=== PATIENT | female | born 1995 | race Caucasian/White ===

== ENCOUNTER 2017-04-04 11:51 | Emergency (ER) | payer BC, MEDICAID ==
[~2017-04-04] VITALS: Ht 152.4 cm; Wt 64.0 kg
[~2017-04-04 11:51] MED LIST: IBUP600 PO; OXYC1SOL5 PO
[2017-04-04 11:55] VITALS: BP 122/83; PULSE 124; RESP 18; TEMP 98.9; O2SAT 97
[2017-04-04 12:13] LABS: BLOOD, URINE NEG (NEG); GLUCOSE,URINE NEG (NEG); KETONE, URINE NEG (NEG); NITRITE,URINE NEG (NEG)
[2017-04-04] MEDS ORDERED: ONDANSETRON ODT 4 MG TAB PO ONE (12:30)
[2017-04-04 12:33] LABS: METHOD OF COLLECTION CLEAN CATCH; URINE COLOR YELLOW (YELLW/STRAW)
[2017-04-04 12:35] LABS: BACTERIA, URINE MANY /hpf; COMMENT (UR) CULTURE INDICATED; COMMENT2 (UR) MUCOUS PRESENT; CULTURE IF INDICATED CULTURE INDICATED; SQUAMOUS EPITHELIAL CELL URINE > 8 /hpf (0-5); WBC, URINE 15-19 /hpf (0-5)
--- NOTE | 2017-04-04 13:02 | PD ---
HPI Chief Complaint: GI Complaint Time Seen by Provider: 12:13 Travel History International Travel<30 days: No Contact w/Intl Traveler<30days: No Traveled to known affect area: No History of Present Illness HPI Patient 21-year-old female presents emergency department for evaluation of nausea and vomiting since yesterday evening. 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 She denies any diarrhea blood in the stool blood in the emesis. She endorses some mild abdominal cramping without true pain. States that she just had her cycle PFSH Past Medical History Asthma: Yes Diminished Hearing: No Respiratory: Yes (ASTHMA) Immunizations Current: Yes Influenza Vaccination: No ?: Not LMP: 03/01/17 Past Surgical History Section: Yes Social History Alcohol Use: No Tobacco Use: No Substance Use: No Allergies-Medications (Allergen,Severity, Reaction): Coded Allergies: No Known Allergies (Verified , 04/04/17) Reported Meds & Prescriptions Reported Meds & Active Scripts Active Keflex (Cephalexin) 500 Mg Cap 500 Mg PO Q6H 7 Days Zofran Odt (Ondansetron Odt) 4 Mg Tab 4 Mg SL Q6HR PRN Review of Systems Except as stated in HPI: all other systems reviewed are Neg Physical Exam Narrative GENERAL: Well-developed well-nourished no apparent distress, talking on her phone. SKIN: Focused skin assessment warm/dry. HEAD: Atraumatic. Normocephalic. EYES: Pupils equal and round. No scleral icterus. No injection or drainage. ENT: No nasal bleeding or discharge. Mucous membranes pink and moist. NECK: Trachea midline. No JVD. CARDIOVASCULAR: Regular rate and rhythm. No murmur appreciated. RESPIRATORY: No accessory muscle use. Clear to auscultation. Breath sounds equal bilaterally. GASTROINTESTINAL: Abdomen soft, non-tender, nondistended. Hepatic and splenic margins not palpable. Abdomen is very benign, no CVA tenderness no psoas sign and obturator sign negative. MUSCULOSKELETAL: No obvious deformities. No clubbing. No cyanosis. No edema. NEUROLOGICAL: Awake and alert. No obvious cranial nerve deficits. Motor grossly within normal limits. Normal speech. PSYCHIATRIC: Appropriate mood and affect; insight and judgment normal. Data Data Last Documented VS Vital Signs Date Time Temp Pulse Resp B/P Pulse Ox O2 Delivery O2 Flow Rate FiO2 04/04/17 13:45 98 16 119/65 99 Room Air 04/04/17 11:55 98.9 Orders Urinalysis - C+S If Indicated (04/04/17 12:00) Ed Urine Pregnancytest Poc (04/04/17 12:00) Ondansetron Odt (Zofran Odt) (04/04/17 12:30) Urine Culture (04/04/17 12:05) Labs Laboratory Tests Test 04/04/17 12:05 Urine Collection Type CLEAN CATCH Urine Color YELLOW Urine Turbidity MOD Urine pH 6.0 Urine Specific [place] 1.033 Urine Protein TRACE mg/dL Urine Glucose (UA) NEG mg/dL Urine Ketones NEG mg/dL Urine Occult Blood NEG Urine Nitrite NEG Urine Bilirubin NEG Urine Leukocyte Esterase NEG Urine RBC 10-14 /hpf Urine WBC 15-19 /hpf Urine WBC Clumps FEW Urine Squamous Epithelial > 8 /hpf Cells Urine Amorphous Sediment MOD Urine Bacteria MANY /hpf Microscopic Urinalysis Comment CULTURE INDICATED Urine Collection Time 1205 MDM Medical Decision Making Medical Screen Exam Complete: Yes Emergency Medical Condition: Yes Differential Diagnosis Urinary tract infection, BV, CV, gastritis, gastroenteritis, acute abdomen is highly unlikely. Narrative Course Patient was roomed emergency department, she appears well and her abdomen is completely benign. She states that she is convinced that her nausea vomiting is from the food she last night. She was given Zofran and is able tolerate by mouth Gatorade. Discussed with the patient be happy to work her up further with basic lab work however I do not think this will be beneficial to her and recommended symptomatic management for now and discussed return to ED criteria. She is agreeable. Urine test was negative, UA shows some evidence for urinary tract infection versus contamination with vaginal specimen. The patient denies any vaginal bleeding or vaginal discharge currently. 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 She stable for discharge at this time. Her Keflex prescription was called into her pharmacy. Diagnosis Primary Impression: Nausea & vomiting Qualified Code: R11.2 - Non-intractable vomiting with nausea, unspecified vomiting type Additional Impression: Gastroenteritis Patient Instructions: Gastroenteritis (DC), General Instructions Departure Forms: Tests/Procedures, Work Release Enter return to work date: Apr 05, 2017 Med/Other Pt SpecificInfo: Prescription(s) given Scripts Cephalexin (Keflex)500 Mg [id number] Mg PO Q6H 7 Days Ref 0 Prov:Peter Villalobos MD 04/04/17 Ondansetron Odt (Zofran Odt)4 Mg Tab4 Mg SL Q6HR PRN (Nausea/Vomiting) #20 TAB Ref 0 Prov:Peter Villalobos MD 04/04/17 Disposition: 01 DISCHARGE HOME Condition: Stable Peter Villalobos MD Apr 04, 2017 13:02
[2017-04-04] MEDS ORDERED: ZOFR4TAB3 SL (13:38)
[2017-04-04 13:45] VITALS: BP 119/65; PULSE 98; RESP 16; O2SAT 99
[2017-04-04] MEDS ORDERED: CEPH-460 PO (14:06)
== END 2017-04-04 13:45 | disposition home or self-care (01) ==
LOC: PHED 11:51
DX: K52.9 Noninfective gastroenteritis and colitis, unspecified (principal); J45.909 Unspecified asthma, uncomplicated
CPT/HCPCS: 81001; 84703; 87086; 99284

== ENCOUNTER 2017-06-16 11:10 | Emergency (ER) | payer BC ==
[~2017-06-16] VITALS: Ht 152.4 cm; Wt 63.0 kg
[~2017-06-16 11:10] MED LIST changes: +CEPH-460 PO; -IBUP600 PO; -OXYC1SOL5 PO; +ZOFR4TAB3 SL
[2017-06-16 11:11] VITALS: BP 115/55; PULSE 55; RESP 16; TEMP 97.7
[2017-06-16] MEDS ORDERED: ESCI10TA PO (11:27)
--- NOTE | 2017-06-16 11:44 | PD ---
HPI Chief Complaint: Syncope/Near-Syncope Time Seen by Provider: 11:28 Travel History International Travel<30 days: No Contact w/Intl Traveler<30days: No Traveled to known affect area: No History of Present Illness HPI 21yo F with PMH of depression presents to the ED with c/o nausea today. She said she felt nauseous, then her eyes became blurry and her friends sat her down in a chair and as per her friend, she was out for a few minutes. Did not fall or hit her head. Pt states she did not eat anything all day. Denies any seizure like activities. Denies any fever, chest pain, sob, vomiting, abdominal pain, focal weakness or numbness. LMP 2 days ago. Denies family history of sudden cardiac . Pt feels better now but still has a little nausea. Vision is normal. She said her psychiatrist started a new medication for her depression 3 weeks ago but does not remember name and does not know if that has anything to do with it. PFSH Past Medical History Asthma: Yes Depression: Yes Diminished Hearing: No Respiratory: Yes (ASTHMA) Immunizations Current: Yes Tetanus Vaccination: < 5 Years Influenza Vaccination: No ?: Not LMP: 2 days ago Past Surgical History Section: Yes Social History Alcohol Use: No Tobacco Use: No Substance Use: No Allergies-Medications (Allergen,Severity, Reaction): Coded Allergies: No Known Allergies (Verified , 06/16/17) Reported Meds & Prescriptions Reported Meds & Active Scripts Active Reported Escitalopram (Escitalopram Oxalate) 10 Mg Tab 10 Mg PO DAILY Review of Systems Except as stated in HPI: all other systems reviewed are Neg Physical Exam Narrative GENERAL: 21yo F not in distress. SKIN: Focused skin assessment warm/dry. HEAD: Atraumatic. Normocephalic. EYES: Pupils equal and round at 4mm bilaterally. EOMI. No scleral icterus. No injection or drainage. ENT: No nasal bleeding or discharge. Mucous membranes pink and moist. NECK: Trachea midline. No JVD. CARDIOVASCULAR: Regular rate and rhythm. No murmur appreciated. RESPIRATORY: No accessory muscle use. Clear to auscultation. Breath sounds equal bilaterally. GASTROINTESTINAL: Abdomen soft, non-tender, nondistended. MUSCULOSKELETAL: No obvious deformities. No clubbing. No cyanosis. No edema. NEUROLOGICAL: Awake and alert. No obvious cranial nerve deficits. Motor grossly within normal limits. Normal speech. PSYCHIATRIC: Appropriate mood and affect; insight and judgment normal. Data Data Last Documented VS Vital Signs Date Time Temp Pulse Resp B/P (MAP) Pulse Ox O2 Delivery O2 Flow Rate FiO2 06/16/17 12:05 99 Room Air 06/16/17 12:05 56 14 56 16 58 16 06/16/17 11:11 97.7 Orders Orders Electrocardiogram (06/16/17 ) Ed Urine Pregnancytest Poc (06/16/17 11:35) Urinalysis - C+S If Indicated (06/16/17 11:35) Blood Glucose (06/16/17 11:35) Orthostatic Blood Pressure (06/16/17 11:35) Ondansetron Odt (Zofran Odt) (06/16/17 11:45) Labs Laboratory Tests Test 06/16/17 12:00 Urine Color STRAW Urine Turbidity CLEAR Urine pH 7.5 Urine Specific [place] 1.024 Urine Protein TRACE mg/dL Urine Glucose (UA) NEG mg/dL Urine Ketones NEG mg/dL Urine Occult Blood NEG Urine Nitrite NEG Urine Bilirubin NEG Urine Leukocyte Esterase NEG Urine WBC 3-5 /hpf Urine Squamous Epithelial Cells >8 /hpf Urine Bacteria FEW /hpf Urine Mucus MOD /lpf Microscopic Urinalysis Comment CULT NOT INDICATED MDM Medical Decision Making Medical Screen Exam Complete: Yes Emergency Medical Condition: Yes Interpretation(s) EKG: NSR 63bpm. Normal axis. QTc normal at 420ms. No ST segment elevation or depression. No brugada pattern. No LVH. Differential Diagnosis Vasovagal syncope vs. QT prolongation vs. hypoglycemia vs. dehydration vs. vs. medication side effect Narrative Course 21yo F with what sounds like vasovagal syncope. Pt is very well appearing and just has a little bit of nausea now. No other complaints. No seizure activity. EKG showed no prolong QT or other concerning rhythms. Blood glucose normal at 120. Orthostatic negative. UA negative. Pt observed in the ED and reevaluated after zofran. No longer nauseous. Feels completely normal. No chest pain, sob, focal weakness or numbness. Return precautions given. Diagnosis Primary Impression: Vasovagal syncope Patient Instructions: General Instructions Departure Forms: Tests/Procedures Additional Instructions: Please follow up with your primary care physician for further evaluation. Return to the ED if symptoms worsen. Med/Other Pt SpecificInfo: No Change to Meds Disposition: 01 DISCHARGE HOME Condition: Stable Sol Lin DO Jun 16, 2017 11:44
[2017-06-16] MEDS ORDERED: ONDANSETRON ODT 4 MG TAB PO ONE (11:45)
[2017-06-16 12:05] VITALS: BP_SYST 113; BP_SYST 114; BP_SYST 118; BP_DIAS 57; BP_DIAS 59; BP_DIAS 61; RESP 14; RESP 16; O2SAT 99
[2017-06-16 12:13] LABS: BLOOD, URINE NEG (NEG); GLUCOSE,URINE NEG (NEG); KETONE, URINE NEG (NEG); NITRITE,URINE NEG (NEG); PH, URINE 7.5 (5.0-8.5)
[2017-06-16 12:19] LABS: URINE COLOR STRAW (YELLW/STRAW)
[2017-06-16 12:23] LABS: MUCUS URINE MOD /lpf (OCC)
[2017-06-16 12:25] LABS: BACTERIA, URINE FEW /hpf; COMMENT (UR) CULT NOT INDICATED; CULTURE IF INDICATED CULT NOT INDICATED; SQUAMOUS EPITHELIAL CELL URINE >8 /hpf (0-5)
--- NOTE | 2017-06-17 11:56 | EKG ---
Date Performed: 06/16/2017 Time Performed: 11:45:48 PTAGE: 21 years EKG: Sinus rhythm NORMAL ECG PREVIOUS TRACING : 04/21/1999 16.59 Compared to previous tracing, nonspecific septal T wave abn ormality has resolved. DOCTOR: Rojelio Rocha Interpretating Date/Time 06/17/2017 11:54:56
== END 2017-06-16 12:50 | disposition home or self-care (01) ==
LOC: PHED 11:10
DX: R55 Syncope and collapse (principal); R11.10 Vomiting, unspecified; J45.909 Unspecified asthma, uncomplicated
CPT/HCPCS: 81001; 84703; 93005; 99284

== ENCOUNTER 2017-10-23 18:10 | Emergency (ER) | payer BC, OTHER ==
[~2017-10-23] VITALS: Ht 152.4 cm; Wt 65.0 kg
[~2017-10-23 18:10] MED LIST changes: +BACT800T5 PO; +ESCI10TA PO; +IBUP-232 PO; -ZOFR4TAB3 SL
[2017-10-23 18:21] VITALS: BP 134/67; PULSE 98; RESP 16; TEMP 98.3; O2SAT 98
[2017-10-23] MEDS ORDERED: PREN1PAK9 (19:07)
[2017-10-23] MEDS ORDERED: SODIUM CHLOR 0.9% 1000 ML INJ 1,000 ML IV SCH ×2 (19:08→20:15)
[2017-10-23] MEDS ORDERED: DOXY10TA PO (19:12)
[2017-10-23] MEDS ORDERED: ONDANSETRON HCL 4 MG/2 ML VIAL IV PUSH ONE (19:15)
[2017-10-23] MEDS ORDERED: SODIUM CHLORIDE 0.9% FLUSH 10 ML FLUSH IV FLUSH PRN (19:15)
--- NOTE | 2017-10-23 19:19 | PD ---
HPI Chief Complaint: Related Problem Time Seen by Provider: 19:08 Travel History International Travel<30 days: No Contact w/Intl Traveler<30days: No Traveled to known affect area: No History of Present Illness HPI The patient is a 22-year-old female that is 12 weeks and ran out of her diclegis on . She has been vomiting since Tuesday. She is G1 2, P1 , A0. [facility] Past Medical History Asthma: Yes Depression: Yes Diminished Hearing: No Respiratory: Yes (ASTHMA) Immunizations Current: Yes Tetanus Vaccination: < 5 Years Influenza Vaccination: Yes ?: : 2 Para: 1 Past Surgical History Section: Yes Gynecologic Surgery: Yes ( 05/26) Social History Alcohol Use: No Tobacco Use: No Substance Use: No Allergies-Medications (Allergen,Severity, Reaction): Coded Allergies: No Known Allergies (Verified Adverse Reaction, Unknown, 10/23/17) Reported Meds & Prescriptions Reported Meds & Active Scripts Active Diclegis (Doxylamine-Pyridoxine) 10-10 Mg Tab 2 Tab PO HS Reported + Complete Multi 18-0.8 & 290 mg ( Mv & Min W/Fe Prot Taylor) 18 Mg Iron-800 Mcg-290 Mg-225 Mg Ke Review of Systems Except as stated in HPI: all other systems reviewed are Neg Physical Exam Narrative GENERAL: The patient is alert, oriented 3 in slight apparent distress with her nausea. Her vital signs are normal. SKIN: Focused skin assessment warm/dry. HEAD: Atraumatic. Normocephalic. EYES: Pupils equal and round. No scleral icterus. No injection or drainage. ENT: No nasal bleeding or discharge. Mucous membranes pink and moist. NECK: Trachea midline. No JVD. CARDIOVASCULAR: Regular rate and rhythm. No murmur appreciated. RESPIRATORY: No accessory muscle use. Clear to auscultation. Breath sounds equal bilaterally. GASTROINTESTINAL: Abdomen soft, non-tender, nondistended. Hepatic and splenic margins not palpable. MUSCULOSKELETAL: No obvious deformities. No clubbing. No cyanosis. No edema. NEUROLOGICAL: Awake and alert. No obvious cranial nerve deficits. Motor grossly within normal limits. Normal speech. PSYCHIATRIC: Appropriate mood and affect; insight and judgment normal. Data Data Last Documented VS Vital Signs Date Time Temp Pulse Resp B/P (MAP) Pulse Ox O2 Delivery O2 Flow Rate FiO2 10/23/17 19:27 86 16 112/72 (85) 86 Room Air 10/23/17 18:21 98.3 Orders Orders Complete Blood Count With Diff (10/23/17 19:08) Comprehensive Metabolic Panel (10/23/17 19:08) Lipase (10/23/17 19:08) Iv Access Insert/Monitor (10/23/17 19:08) Ecg Monitoring (10/23/17 19:08) Oximetry (10/23/17 19:08) Sodium Chlor 0.9% 1000 Ml Inj (Ns 1000 M (10/23/17 19:08) Sodium Chloride 0.9% Flush (Ns Flush) (10/23/17 19:15) Ondansetron Inj (Zofran Inj) (10/23/17 19:15) Prochlorperazine Inj (Compazine Inj) (10/23/17 20:15) Sodium Chlor 0.9% 1000 Ml Inj (Ns 1000 M (10/23/17 20:15) Labs Laboratory Tests Test 10/23/17 19:25 White Blood Count 7.0 TH/MM3 Red Blood Count 5.05 MIL/MM3 Hemoglobin 12.1 GM/DL Hematocrit 39.3 % Mean Corpuscular Volume 77.9 FL Mean Corpuscular Hemoglobin 23.9 PG Mean Corpuscular Hemoglobin Concent 30.7 % Red Cell Distribution Width 14.8 % Platelet Count 306 TH/MM3 Mean Platelet Volume 8.2 FL Neutrophils (%) (Auto) 73.9 % Lymphocytes (%) (Auto) 18.2 % Monocytes (%) (Auto) 6.5 % Eosinophils (%) (Auto) 0.6 % Basophils (%) (Auto) 0.8 % Neutrophils # (Auto) 5.1 TH/MM3 Lymphocytes # (Auto) 1.3 TH/MM3 Monocytes # (Auto) 0.5 TH/MM3 Eosinophils # (Auto) 0.0 TH/MM3 Basophils # (Auto) 0.1 TH/MM3 CBC Comment AUTO DIFF Differential Comment AUTO DIFF CONFIRMED Platelet Estimate NORMAL Platelet Morphology Comment NORMAL Red Cell Morphology Comment Blood Urea Nitrogen 5 MG/DL Creatinine 0.46 MG/DL Random Glucose 74 MG/DL Total Protein 7.6 GM/DL Albumin 3.2 GM/DL Calcium Level 8.6 MG/DL Alkaline Phosphatase 67 U/L Aspartate Amino Transf (AST/SGOT) 18 U/L Alanine Aminotransferase (ALT/SGPT) 20 U/L Total Bilirubin 0.3 MG/DL Sodium Level 138 MEQ/L Potassium Level 3.3 MEQ/L Chloride Level 103 MEQ/L Carbon Dioxide Level 24.1 MEQ/L Anion Gap 11 MEQ/L Estimat Glomerular Filtration Rate 171 ML/MIN Lipase 114 U/L MDM Medical Decision Making Medical Screen Exam Complete: Yes Emergency Medical Condition: Yes Medical Record Reviewed: Yes Interpretation(s) The CBC is normal and the white count is only 7000. The complete metabolic profile shows potassium of 3.3 and albumen 3.2 but is otherwise normal. The lipase is normal. Differential Diagnosis Hyperemesis gravidarum, sbo, unlikely, gastritis, viral gastroenteritis, dehydration Narrative Course The patient will have her Diclegis refilled. She was increase clear liquid intake in the next 48 hours and follow up with her extractor operator this week. Impression: Hyperemesis gravidarum, mild dehydration Diagnosis Primary Impression: Hyperemesis gravidarum Additional Impression: Mild dehydration Additional Instructions: Stick with clear liquids in the next 48 hours like Gatorade. Make sure you're well-hydrated. Follow-up this week with your extractor operator. Scripts Doxylamine-Pyridoxine (Diclegis) 10-10 Mg Tab 2 TAB PO HS, #30 Prov: Rick Rosario MD 10/23/17 Disposition: 01 DISCHARGE HOME Condition: Stable Rick Rosario MD Oct 23, 2017 19:19
[2017-10-23 19:27] VITALS: BP 112/72; PULSE 86; RESP 16; O2SAT 86
[2017-10-23 19:33] LABS: AUTOMATED NEUTROPHIL # 5.1 TH/MM3 (1.8-7.7); BASOPHIL # 0.1 TH/MM3 (0-0.2); BASOPHIL % 0.8 % (0.0-2.0); EOSINOPHIL % 0.6 % (0.0-4.0); HEMATOCRIT 39.3 % (35.0-46.0); HEMOGLOBIN 12.1 GM/DL (11.6-15.3); LYMPH % 18.2 % (9.0-44.0); LYMPHOCYTE # 1.3 TH/MM3 (1.0-4.8); MEAN CELL VOLUME 77.9 FL (80.0-100.0); MEAN CORPUSCULAR HEMOGLOBIN 23.9 PG (27.0-34.0); MEAN CORPUSCULAR HGB CONC 30.7 % (32.0-36.0); MEAN PLATELET VOLUME 8.2 FL (7.0-11.0); MONO % 6.5 % (0.0-8.0); MONOCYTE # 0.5 TH/MM3 (0-0.9); NEUT % 73.9 % (16.0-70.0); PLATELET COUNT 306 TH/MM3 (150-450); RED BLOOD COUNT 5.05 MIL/MM3 (4.00-5.30); RED CELL DISTRIBUTION WIDTH 14.8 % (11.6-17.2)
[2017-10-23 19:50] LABS: CHLORIDE 103 MEQ/L (98-107); SODIUM (NA) 138 MEQ/L (136-145)
[2017-10-23 19:53] LABS: CALCIUM 8.6 MG/DL (8.5-10.1)
[2017-10-23 19:54] LABS: ALBUMIN 3.2 GM/DL (3.4-5.0); BICARBONATE 24.1 MEQ/L (21.0-32.0); BLOOD UREA NITROGEN 5 MG/DL (7-18); GLUCOSE,RANDOM 74 MG/DL (74-106); LIPASE 114 U/L (73-393)
[2017-10-23 19:57] LABS: ALT (GPT) 20 U/L (10-53); AST (GOT) 18 U/L (15-37); CREATININE 0.46 MG/DL (0.50-1.00); GLOMERULAR FILTRATION RATE 171 ML/MIN (>89)
[2017-10-23 19:58] LABS: TOTAL BILIRUBIN ADULT 0.3 MG/DL (0.2-1.0); TOTAL PROTEIN 7.6 GM/DL (6.4-8.2)
[2017-10-23 20:00] LABS: ALKALINE PHOSPHATASE 67 U/L (45-117)
[2017-10-23] MEDS ORDERED: PROCHLORPERAZINE INJ 10 MG/2 ML VIAL IV PUSH ONE (20:15)
[2017-10-23 21:09] VITALS: BP 110/62
== END 2017-10-23 21:20 | disposition home or self-care (01) ==
LOC: PHED 18:10
DX: O21.0 Mild hyperemesis gravidarum (principal); E86.0 Dehydration; O99.281 Endocrine, nutritional and metabolic diseases complicating pregnancy, first trimester; J45.909 Unspecified asthma, uncomplicated; O99.511 Diseases of the respiratory system complicating pregnancy, first trimester; O99.341 Other mental disorders complicating pregnancy, first trimester; F41.8 Other specified anxiety disorders; Z3A.12 12 weeks gestation of pregnancy
CPT/HCPCS: 80053; 83690; 85025; 96361; 96374; 96375; 99284; J0780; J2405; J7030

== ENCOUNTER 2017-12-12 18:56 | Emergency (ER) | payer BC, OTHER ==
[~2017-12-12 18:56] MED LIST changes: -BACT800T5 PO; -CEPH-460 PO; +DOXY10TA PO; -ESCI10TA PO; -IBUP-232 PO; +PREN1PAK9
--- NOTE | 2017-12-12 19:51 | PD ---
HPI Chief Complaint Epigastric pain Date Seen: Dec 12, 2017 Time Seen: 19:48 Travel History International Travel<30 Days: No Contact w/Intl Traveler<30Days: No Known Affected Area: No History of Present Illness HPI 22-year-old at 18 weeks gestation comes in complaining of epigastric pain that began approximately an hour and a half ago when she was at work. Patient denies any heavy lifting at exercise or trauma. Patient denies nausea vomiting , fever, vaginal bleeding, or diarrhea. Patient has a history of a section in the past and otherwise her antepartum course has been normal Weeks Gestation: 18 Para: 1 : 2 History Past Medical History Medical History: Denies Significant Hx Family History Family History: Negative Social History Alcohol Use: No Tobacco Use: No Substance Abuse: No Allergies-Medications (Allergen,Severity, Reaction): Coded Allergies: No Known Allergies (Verified Adverse Reaction, Unknown, 10/23/17) Home Meds Active Scripts Doxylamine-Pyridoxine (Diclegis) 10-10 Mg Tab, 2 TAB PO HS, #30 Prov:Rick Rosario MD 10/23/17 Reported Medications Mv & Min W/Fe Prot Taylor ( + Complete Multi 18-0.8 & 290 mg) 18 Mg Iron-800 Mcg-290 Mg-225 Mg Ke 10/23/17 Review of Systems Except as stated in HPI: all other systems reviewed are Neg Physical Exam Narrative GENERAL: Well-nourished, well-developed patient. SKIN: Warm and dry. HEAD: Normocephalic and atraumatic. EYES: No scleral icterus. No injection or drainage. NECK: Supple, trachea midline. No JVD. CARDIOVASCULAR: Regular rate and rhythm without murmurs, gallops, or rubs. RESPIRATORY: Breath sounds equal bilaterally. No accessory muscle use. ABDOMEN/GI: Abdomen soft, non-tender, bowel sounds present, no rebound, no guarding Gravid to [-] weeks size 18 Fundal Height: [-] GENITOURINARY: Deferred External Genitalia: intact and normal in appearance BUS glands: [-] Cervix: [-] Dilatation: [-] Effacement: [-] Station: [-] Presentation: [-] Membranes: [intact or ruptured] Uterine Contractions: [-] FHT's: 142 by Doppler Category: [-] Baseline: [-] Reactive: [-] Variability: [-] Decels: [-] EXTREMITIES: No cyanosis or edema. BACK: Nontender without obvious deformity. No CVA tenderness. NEUROLOGICAL: Awake and alert. Motor and sensory grossly within normal limits. Five out of 5 muscle strength in all muscle groups. Normal speech. MDM Medical Record Reviewed: Yes Plan 22-year-old at 18 weeks gestation with epigastric pain, exam is benign Patient is afebrile with a benign exam so I am not concerned about cholecystitis Recommend the use of Tums or [id number] Pepcid or Prilosec as necessary Follow up with OB provider tomorrow Diagnosis Diagnosis: Primary Impression: 18 weeks gestation of Additional Impression: with epigastric pain, antepartum Disposition: 01 DISCHARGE HOME Condition: Stable Patient Instructions: General Instructions, Labor (ED), Abdominal Pain in (ED) Additional Instructions: DRINK PLENTY OF WATER DURING THE DAY, RETURN IF LEAKING FLUID, VAGINAL BLEEDING , STRONG CONTRACTIONS, DECREASE IN MOVEMENT OR IF SYMPTOMS WORSEN OR PERSIST.FOLLOW UP WITH OB DR IN AM AND KEEP ALL UPCOMING OB APPTS. Departure Forms: Tests/Procedures Re Bolton MD Dec 12, 2017 19:51
== END 2017-12-12 19:40 | disposition home or self-care (01) ==
LOC: HOBED 18:56
DX: O26.891 Other specified pregnancy related conditions, first trimester (principal); R10.13 Epigastric pain; Z3A.18 18 weeks gestation of pregnancy
CPT/HCPCS: 99283

== ENCOUNTER 2018-04-14 11:35 | Inpatient (IN) ==
--- NOTE | 2018-04-14 12:31 | ED ---
History of Present Illness Primary Care Physician: Ivy Reece MD History of Present Illness: 31-year-old 3 para 2 at 18 weeks gestation who comes today with a complaint of intermittent lower abdominal pain. She noticed this at about 4 this morning. It has occurred several times throughout the day. Last for a few seconds. She denies any bleeding discharge or leakage of fluid. No dysuria hematuria or frequency. No severe constipation. She has occasional diarrhea. - Inpatient Certification If this patient has been admitted as an Inpatient: I certify that the inpatient services were ordered in accordance with Medicare regulations governing the order. This includes certification that hospital inpatient services are reasonable and necessary and in the case of services not specified as inpatient-only under 42 CFR 419.22(n), that they are appropriately provided as inpatient services in accordance to with the 2-midnight benchmark under 43 CFR 412.3(e) Review of Systems All other systems reviewed negative except as stated in HPI PMFSH - History History Provided By: Patient - Medical / Surgical Hx Neg / Unobtainable Medical Problems Denied: Yes - Medical History Medical History: Medical History (Last Updated 04/14/18 @ 12:18 by Rahul Mancini MD) History of frequent urinary tract infections - Surgical History Surgical History: Surgical History (Last Updated 04/14/18 @ 12:24 by Rahul Mancini MD) Hx of appendectomy Hx of section - Tobacco History Tobacco Use In Past 30 Days: No - Travel History History of Recent Travel: No Recent Travel in the [place] Within the Last 8 Weeks: No Recent Travel Out of the Country Within the Last 8 Weeks: No Medications and Allergies Allergies Allergy/AdvReac Type Severity Reaction Status Date / Time No Known Allergies AdvReac Unknown Uncoded 10/23/17 19:02 Exam Vital signs: Vital Signs 04/14/18 12:06 Temperature 98.4 F Pulse Rate 111 H Respiratory Rate 20 Blood Pressure 131/80 Intake & Output 04/13/18 04/14/18 04/14/18 18:59 06:59 18:59 Weight 76.657 kg - Constitutional no acute distress - Routine Neck Exam Absent: lymphadenopathy, thyromegaly - Routine Respiratory Exam Absent: decreased breath sounds, wheezes - Routine Cardiovascular Exam Present: RRR. Absent: murmur - Routine Abdominal Exam Present: soft, normoactive bowel sounds. Absent: tenderness, distended, guarding, mass - Routine Extremities Exam Absent: edema - Routine Skin Exam Present: intact - Routine Neurological Exam Present: alert, oriented X3 Triage/Final Diagnosis - Evaluation Baseline heart rate: 140 Cervical dilation (cm): 0 Cervical effacement (%): 0 station: -3 Laboratory results: Urinalysis was negative Vital signs: Vital Signs - 24 hr 04/14/18 12:06 Temperature 98.4 F Pulse Rate 111 H Respiratory Rate 20 Blood Pressure 131/80 Comments: The uterus including the lower uterine segment is nontender. There is no cervical motion tenderness. No unusual vaginal discharge. Assessment: Lower abdominal pain at 18 weeks gestation with no acute abnormalities noted Plan: Discharged home. Precautions reviewed. Follow-up as needed for routine care. - Final Diagnosis (1) 18 weeks gestation of Current Visit: Yes Status: Acute (2) Abdominal pain affecting Current Visit: Yes Status: Acute Physical Exam Vital signs: Temp Pulse Resp BP 98.4 F 111 H 20 131/80 04/14/18 12:06 04/14/18 12:06 04/14/18 12:06 04/14/18 12:06
[2018-04-14] MEDS ORDERED: NIFEdipine 10 MG Capsule ONE (14:01)
[2018-04-14] MEDS ORDERED: Citric Acid/Sodium Citrate Liq 30 ML UDC ONE (14:20)
[2018-04-14] MEDS ORDERED: Citric Acid/Sodium Citrate Liq 30 ML UDC PO SCH (14:30)
--- NOTE | 2018-04-14 14:38 | P.HPOB ---
History of Present Illness Primary Care Physician: Ivy Reece MD History of Present Illness: 22-year-old 2 para 1 at 36+ weeks gestation who reports increasing contraction activity throughout the afternoon. She is a prior anticipating a scheduled repeat later this month. She is a patient of Dr. Clement. The patient has regular uterine contractions and progressive cervical change since arrival and will be admitted for repeat . - Inpatient Certification If this patient has been admitted as an Inpatient: I certify that the inpatient services were ordered in accordance with Medicare regulations governing the order. This includes certification that hospital inpatient services are reasonable and necessary and in the case of services not specified as inpatient-only under 42 CFR 419.22(n), that they are appropriately provided as inpatient services in accordance to with the 2-midnight benchmark under 43 CFR 412.3(e) Estimated Total Length of Stay (Days): 3 Plans for Post Hospital Care: Home Review of Systems All other systems reviewed negative except as stated in HPI PMFSH - History History Provided By: Patient - Medical / Surgical Hx Neg / Unobtainable Medical Problems Denied: Yes - Surgical History Surgical History: Surgical History (Last Updated 04/14/18 @ 14:32 by Rahul Mancini MD) History of delivery - Tobacco History Tobacco Use In Past 30 Days: No Smoking Status: Never smoker - Substance Use History Substance History: No History of Abuse - Travel History History of Recent Travel: No Recent Travel in the [place] Within the Last 8 Weeks: No Recent Travel Out of the Country Within the Last 8 Weeks: No Medications and Allergies Active Medications: Active Medications Citric Acid/Sodium Citrate (Sodium Citrate/Citric Acid Liq) 30 ml PO BOOT 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 Stop: 04/18/18 14:29 Cefazolin Sodium 2,000 mg/ (Sodium Chloride) 100 mls @ 200 mls/hr IV.SIG BOOT LACE C[employer] MACHINE PREET Stop: 04/18/18 14:59 Lactated Ringer's (Lr 1000 Ml Inj) 1,000 mls @ 2,000 mls/hr IV.SIG .Q30M ONE Stop: 04/14/18 14:47 Lactated Ringer's (Lr 1000 Ml Inj) 1,000 mls @ 150 mls/hr IV.CONT .Q6H40M [facility] Allergies Allergy/AdvReac Type Severity Reaction Status Date / Time No Known Allergies Allergy Verified 04/14/18 12:31 Home Medications Medication Instructions Recorded Confirmed Type PNV #[id number] 1 tab PO DAILY 04/14/18 04/14/18 History Exam Vital signs: Vital Signs 04/14/18 12:06 04/14/18 12:18 Temperature 98.4 F Pulse Rate 111 H 103 H Respiratory Rate 20 Blood Pressure 131/80 134/78 Intake & Output 04/13/18 04/14/18 04/14/18 18:59 06:59 18:59 Weight 76.657 kg Narrative: GENERAL: Well-nourished, well-developed patient. SKIN: Warm and dry. HEAD: Normocephalic and atraumatic. EYES: No scleral icterus. No injection or drainage. ENT: No nasal drainage noted. Mucous membranes pink. Airway patent. NECK: Supple, trachea midline. No JVD. CARDIOVASCULAR: Regular rate and rhythm without murmurs, gallops, or rubs. RESPIRATORY: Breath sounds equal bilaterally. No accessory muscle use. ABDOMEN/GI: Abdomen soft, non-tender, bowel sounds present, no rebound, no guarding Gravid to [-] weeks size Fundal Height: [-] GENITOURINARY: External Genitalia: intact and normal in appearance BUS glands: [-] Cervix: [-] Dilatation: [-4] Effacement: [-80] Station: [-2-] Presentation: [-v] Membranes: [intact ] Uterine Contractions: [-] FHT's: Category: [1-] Baseline: [-] Reactive: [-] Variability: [-] Decels: [-] EXTREMITIES: No cyanosis or edema. BACK: Nontender without obvious deformity. No CVA tenderness. NEUROLOGICAL: Awake and alert. Motor and sensory grossly within normal limits. Five out of 5 muscle strength in all muscle groups. Normal speech. Caprini VTE Risk Assessment Caprini VTE Risk Assessment: No/Low Risk (score <= 1) Caprini Risk Assessment Model: Point Value = 1 Point Value = 2 Point Value = 3 Point Value = 5 Age 41-60 Minor surgery BMI > 25 kg/m2 Swollen legs Varicose veins or History of unexplained or recurrent spontaneous Oral contraceptives or hormone replacement Sepsis (< 1 month) Serious lung disease, including pneumonia (< 1 month) Abnormal pulmonary function Acute myocardial infarction Congestive heart failure (< 1 month) History of inflammatory bowel disease Medical patient at bed rest Age 61-74 Arthroscopic surgery Major open surgery (> 45 min) Laparoscopic surgery (> 45 min) Malignancy Confined to bed (> 72 hours) Immobilizing plaster cast Central venous access Age >= 75 History of VTE Family history of VTE Factor V Leiden Prothrombin [id number] Lupus anticoagulant Anticardiolipin antibodies Elevated serum homocysteine Heparin-induced thrombocytopenia Other congenital or acquired thrombophilia Stroke (< 1 month) Elective arthroplasty Hip, pelvis, or leg fracture Acute spinal cord injury (< 1 month) Prophylaxis Regimen: Total Risk Factor Score Risk Level Prophylaxis Regimen 0-1 Low Early ambulation 2 Moderate Order ONE of the following: *Sequential Compression Device (SCD) *Heparin 5000 units SQ BID 3-4 Higher Order ONE of the following medications: *Heparin 5000 units SQ TID *Enoxaparin/Lovenox 40 mg SQ daily (WT < 150 kg, CrCl > 30 mL/min) *Enoxaparin/Lovenox 30 mg SQ daily (WT < 150 kg, CrCl > 10-29 mL/min) *Enoxaparin/Lovenox 30 mg SQ BID (WT < 150 kg, CrCl > 30 mL/min) AND/OR *Sequential Compression Device (SCD) 5 or more Highest Order ONE of the following medications: *Heparin 5000 units SQ TID (Preferred with Epidurals) *Enoxaparin/Lovenox 40 mg SQ daily (WT < 150 kg, CrCl > 30 mL/min) *Enoxaparin/Lovenox 30 mg SQ daily (WT < 150 kg, CrCl > 10-29 mL/min) *Enoxaparin/Lovenox 30 mg SQ BID (WT < 150 kg, CrCl > 30 mL/min) AND *Sequential Compression Device (SCD) Assessment and Plan - Diagnosis (1) 36 weeks gestation of Code(s): Z3A.36 - 36 weeks gestation of Status: Acute Plan: Admit for repeat section
[2018-04-14] MEDS ORDERED: Morphine Sulfate PF Inj 5 MG/10 ML Ampul ONE (14:42)
[2018-04-14 14:48] LABS: Baso % (Auto) 0.2 % (0.0-2.0); Eos # (Auto) 0.1 th/mm3 (0.0-0.4); Eos % (Auto) 0.5 % (0.0-4.0); Hematocrit 30.2 % (35.0-46.0); Hemoglobin 9.8 gm/dL (11.6-15.3); Lymph # (Auto) 2.1 th/mm3 (1.0-4.8); Lymph % (Auto) 17.9 % (9.0-44.0); Mean Corpuscular HGB Conc 32.6 % (32.0-36.0); Mean Corpuscular Hemoglobin 22.2 pg (27.0-34.0); Mean Platelet Volume 8.8 fL (7.0-11.0); Mono # (Auto) 0.8 th/mm3 (0.0-0.9); Mono % (Auto) 6.7 % (0.0-8.0); Neut # (Auto) 8.7 th/mm3 (1.8-7.7); Neut % (Auto) 74.7 % (16.0-70.0); Platelet Count 260 th/mm3 (150-450); Red Blood Count 4.43 mil/mm3 (4.00-5.30); Red Cell Distribution Width 17.6 % (11.6-17.2); White Blood Count 11.7 th/mm3 (4.0-11.0)
[2018-04-14] MEDS ORDERED: ceFAZolin Inj 2,000 MG in Sodium Chlor 0.9% Inj 80 ML IV.SIG SCH (15:00)
[2018-04-14] MEDS ORDERED: Senna/Docusate Sodium 8.6/50 MG Tablet PO PRN (16:23)
[2018-04-14] MEDS ORDERED: Simethicone 80 MG Chew Tablet PO PRN (16:23)
--- NOTE | 2018-04-14 16:33 | MP ---
cc: Clementine Clement MD DATE OF OPERATION: 04/14/2018 DATE OF OPERATION: 04/14/2018 PREOPERATIVE DIAGNOSES: 1. Intrauterine at 36 weeks and 2 days. 2. Active labor. 3. Previous section. POSTOPERATIVE DIAGNOSES: 1. Intrauterine at 36 weeks and 2 days. 2. Active labor. 3. Previous section. PROCEDURE PERFORMED: Repeat low transverse section and excision of the old incision. COMPLICATIONS: None. COUNTS: Correct. FINDINGS: A normal female, Apgars 9 and 9, weight 6 pounds, 11 ounces, born at 15:10. ESTIMATED BLOOD LOSS: 500 mL CONDITION: The patient tolerated the procedure well and went to the recovery room in good condition. INDICATIONS FOR PROCEDURE: The patient came in having regular uterine contractions. We attempted to stop them with IV fluids. This did not stop her contractions. They were still quite strong. She moved her cervix from 3 cm to 4 cm within an hour and we decided at that time we are not going to be able to stop her contractions and proceeded with the . PROCEDURE IN DETAIL: The patient was taken to the operating room identified by name band and verbally. She was given a spinal anesthetic. A Borges catheter was inserted. She was prepped and draped for section. The old Pfannenstiel incision was removed and excised completely and the incision was taken down to the fascia. The fascia was taken off the rectus muscle by blunt and sharp dissection. The peritoneum was entered under direct vision without complication. The incision was extended with care to avoid the urinary bladder. A bladder blade was placed and a bladder flap created over the lower uterine segment which was well-developed. The uterus was then scored in a transverse manner along the lower uterine segment and taken down in the midline until the uterine cavity was entered. The incision was extended with the surgeon's fingers. The vertex was grasped and delivered through the incision without difficulty. The hypopharynx and nasopharynx were suctioned. The remainder of the infant was delivered. The cord was doubly clamped and cut and the infant handed to the resuscitation team that was present. Cord blood was obtained. The placenta was delivered manually without difficulty. The uterus was curettaged twice with a wet lap. The uterine incision was repaired with 2-0 Vicryl a running locking fashion, the second layer imbricating the first. The cul-de-sac and gutters were cleaned of blood and debris with a large amount of irrigation. The uterus was delivered back into the abdomen. The incision was again inspected and was hemostatic. The rectus muscles were reapproximated with 0 Vicryl in an interrupted fashion. The fascia was repaired with 0 Vicryl from lateral to midline bilaterally in a running fashion. The subcutaneous tissue was repaired with 3-0 Vicryl. The skin was repaired with 4-0 Monocryl in a subcuticular manner. Steri-Strips were applied. The wound was sterilely dressed. She tolerated the procedure well and went to the recovery room in good condition. R. MD STEVEN Del Valle/VERÓNICA , 04:19 PM , 04:31 PM
[2018-04-14] MEDS ORDERED: Oxytocin 30 Units/500ml Premix 30 UNITS/500 ML BAG ONE (16:59)
[2018-04-14] MEDS ORDERED: Oxytocin 30 Units/500ml Premix 30 UNITS/500 ML BAG IV.SIG ONE (17:00)
[2018-04-14 19:13] LABS: Amphetamine Urine With Conf Neg (Neg); Benzodiazepine Urine With Conf Neg (Neg)
[2018-04-14] MEDS ORDERED: Naloxone Inj 0.4 MG/ML Vial IV.PUSH PRN (20:10)
[2018-04-14] MEDS ORDERED: Zolpidem Tartrate 5 MG Tablet PO PRN (21:00)
[2018-04-14] MEDS ORDERED: Oxytocin 30 Units/500ml Premix 30 UNITS/500 ML BAG IV.SIG PRN (21:24)
[2018-04-15] MEDS: Ibuprofen 600 MG Tablet PO PRN ×2 (06:32→15:39)
[2018-04-15 06:53] LABS: Baso % (Auto) 0.2 % (0.0-2.0); Eos % (Auto) 0.2 % (0.0-4.0); Hematocrit 26.1 % (35.0-46.0); Hemoglobin 8.2 gm/dL (11.6-15.3); Lymph # (Auto) 2.2 th/mm3 (1.0-4.8); Lymph % (Auto) 17.4 % (9.0-44.0); Mean Corpuscular HGB Conc 31.3 % (32.0-36.0); Mean Corpuscular Hemoglobin 21.2 pg (27.0-34.0); Mean Corpuscular Volume 67.6 fL (80.0-100.0); Mean Platelet Volume 8.7 fL (7.0-11.0); Mono # (Auto) 1.1 th/mm3 (0.0-0.9); Mono % (Auto) 8.3 % (0.0-8.0); Neut # (Auto) 9.4 th/mm3 (1.8-7.7); Neut % (Auto) 73.9 % (16.0-70.0); Platelet Count 217 th/mm3 (150-450); Red Blood Count 3.85 mil/mm3 (4.00-5.30); Red Cell Distribution Width 17.7 % (11.6-17.2); White Blood Count 12.7 th/mm3 (4.0-11.0)
[2018-04-15] MEDS ORDERED: PNV IRON FOLIC ACID OMEGA3 PO SCH (09:00)
--- NOTE | 2018-04-15 10:26 | P.PNOB ---
Subjective Post op day: 1 Interval history: s/p primary LTCD for breech in labor at 36+ wks Objective Vital Signs/I&O: Vital Signs 04/14/18 12:06 04/14/18 12:18 04/14/18 16:10 Temperature 98.4 F 97.6 F Pulse Rate 111 H 103 H 97 H Respiratory Rate 20 18 Blood Pressure 131/80 134/78 117/58 L 04/14/18 16:15 04/14/18 16:24 04/14/18 16:37 Temperature Pulse Rate 90 84 Respiratory Rate 18 18 Blood Pressure 112/54 L 108/53 L 04/14/18 16:45 04/14/18 16:55 04/14/18 17:34 Temperature 97.6 F 97.7 F Pulse Rate 76 66 Respiratory Rate 18 16 Blood Pressure 111/54 L 125/76 04/14/18 20:00 04/14/18 23:54 04/15/18 04:00 Temperature 97.7 F 98.2 F 98.1 F Pulse Rate 54 L 56 L 57 L Respiratory Rate 17 17 17 Blood Pressure 125/67 120/57 L 103/47 L 04/15/18 08:00 Temperature 97.9 F Pulse Rate 85 Respiratory Rate 20 Blood Pressure 108/65 Intake & Output 04/14/18 04/15/18 04/15/18 18:59 06:59 18:59 Intake Total 100 / 100 Balance 100 / 100 Weight 76.657 kg Intake: IV 100 / 100 Ancef Inj 1,000 MG In NS Inj 100 / 100 100 ML @ 200 mls/hr IV.SIG Q8H [facility] Rx#:[id number] Result Diagrams: 04/15/18 06:15 Objective Remarks: GENERAL: Well-nourished, well-developed patient. CARDIOVASCULAR: Regular rate and rhythm without murmurs, gallops, or rubs. RESPIRATORY: Breath sounds equal bilaterally. No accessory muscle use. ABDOMEN/GI: Abdomen soft, non-tender, bowel sounds present. Incision: bandage in place. Clean, dry and intact. Fundus: Firm, non-tender at umbilicus. GENITOURINARY: Light bleeding. EXTREMITIES: No cyanosis or edema, non-tender, without signs of DVT. Medications and IVs: Active Medications Diphenhydramine HCl (Benadryl) 50 mg PO Q6H PRN PRN Reason: MILD TO MODERATE ITCHING Stop: 04/15/18 20:09 Last Admin: 04/14/18 21:05 Dose: 50 mg Diphenhydramine HCl (Benadryl Inj) 25 mg IV.PUSH Q6H PRN PRN Reason: MILD TO MODERATE ITCHING Stop: 04/15/18 20:09 Diphtheria/Pertussis/Tetanus Vacc (Boostrix Vaccine Inj) 0.5 ml IM .ONCE ONE Stop: 04/15/18 16:01 Lactated Ringer's (Lr 1000 Ml Inj) 1,000 mls @ 100 mls/hr IV.CONT .Q10H PREET Stop: 04/15/18 17:23 Oxytocin (Pitocin 30 Units/Ns 500 Ml Premix) 30 units in 500 mls @ 100 mls/hr IV.SIG PRN PRN PRN Reason: Heavy bleeding Stop: 04/15/18 21:23 Measles/Mumps/Rubella Vaccine Live (M-M-R Ii Vaccine Inj) 0.5 ml SQ .ONCE ONE Stop: 04/15/18 16:01 Miscellaneous Information ([facility] Nursing Information) 1 each OTHER UNSCH PRN PRN Reason: SEE LABEL COMMENTS Stop: 04/15/18 20:09 Miscellaneous Information ([facility] Nursing Information) 1 each OTHER UNSCH PRN PRN Reason: SEE LABEL COMMENTS Stop: 04/15/18 20:09 Naloxone HCl (Narcan Inj) 0.4 mg IV.PUSH UNSCH PRN PRN Reason: SEE LABEL COMMENTS Stop: 04/15/18 20:09 Ondansetron HCl (Zofran Odt) 4 mg PO Q6H PRN PRN Reason: NAUSEA OR VOMITING Oxycodone/Acetaminophen (Percocet 5/325 Mg) 1 tab PO Q4H PRN PRN Reason: PAIN SCALE 3 TO 5 Oxycodone/Acetaminophen (Percocet 5/325 Mg) 2 tab PO Q4H PRN PRN Reason: PAIN SCALE 6 TO 10 Senna/Docusate Sodium (Dana-Colace) 2 tab PO Q12H PRN PRN Reason: CONSTIPATION Simethicone (Mylicon Chew) 80 mg PO QID PRN PRN Reason: FLATULENCE Sodium Chloride (Ns Flush) 2 ml IV.FLUSH BID PREET Sodium Chloride (Ns Flush) 2 ml IV.FLUSH PRN PRN PRN Reason: FLUSH AFTER USING IV ACCESS Zolpidem Tartrate (Ambien) 5 mg PO HS PRN PRN Reason: INSOMNIA Assessment and Plan - Diagnosis (1) S/P primary low transverse Code(s): Z98.891 - History of uterine scar from previous surgery Status: Acute (2) Labor presentation, breech Code(s): O32.1XX0 - Maternal care for breech presentation, not applicable or unspecified Status: Acute (3) labor in third trimester Code(s): O60.03 - labor without delivery, third trimester Status: Acute - Plan POD#1 routine supportive care, encourage ambulation, shower, remove bandage Discharge Planning: POD#2-3 (3) labor in third trimester Qualifiers: labor delivery status: with delivery in third trimester Fetus number: single or unspecified fetus Qualified Code(s): O60.14X0 - labor third trimester with delivery third trimester, not applicable or unspecified
[2018-04-15] MEDS ORDERED: Measles/Mumps/Rubella Vaccine Inj 0.5 ML Vial SQ ONE (16:00)
[2018-04-15] MEDS ORDERED: Diphtheria/Tetanus/Pertussis Vaccine Inj 0.5 ML Syringe IM ONE (16:00)
[2018-04-16] MEDS: Ibuprofen 600 MG Tablet PO PRN ×2 (00:50→12:32)
--- NOTE | 2018-04-16 10:02 | P.PNOB ---
Subjective Post op day: 2 Objective Vital Signs/I&O: Vital Signs 04/15/18 11:20 04/15/18 20:00 Temperature 98.2 F 98.2 F Pulse Rate 71 61 Respiratory Rate 20 18 Blood Pressure 113/67 106/65 Result Diagrams: 04/15/18 06:15 Objective Remarks: GENERAL: Well-nourished, well-developed patient. CARDIOVASCULAR: Regular rate and rhythm without murmurs, gallops, or rubs. RESPIRATORY: Breath sounds equal bilaterally. No accessory muscle use. ABDOMEN/GI: Abdomen soft, non-tender, bowel sounds present. Incision: Clean, dry and intact. binder in place. Fundus: Firm, non-tender at umbilicus. GENITOURINARY: Light bleeding. EXTREMITIES: No cyanosis or edema, non-tender, without signs of DVT. Medications and IVs: Active Medications Ondansetron HCl (Zofran Odt) 4 mg PO Q6H PRN PRN Reason: NAUSEA OR VOMITING Oxycodone/Acetaminophen (Percocet 5/325 Mg) 1 tab PO Q4H PRN PRN Reason: PAIN SCALE 3 TO 5 Last Admin: 04/15/18 15:40 Dose: 1 tab Oxycodone/Acetaminophen (Percocet 5/325 Mg) 2 tab PO Q4H PRN PRN Reason: PAIN SCALE 6 TO 10 Last Admin: 04/16/18 05:55 Dose: 2 tab Senna/Docusate Sodium (Dana-Colace) 2 tab PO Q12H PRN PRN Reason: CONSTIPATION Last Admin: 04/15/18 15:39 Dose: 2 tab Simethicone (Mylicon Chew) 80 mg PO QID PRN PRN Reason: FLATULENCE Sodium Chloride (Ns Flush) 2 ml IV.FLUSH BID PREET Sodium Chloride (Ns Flush) 2 ml IV.FLUSH PRN PRN PRN Reason: FLUSH AFTER USING IV ACCESS Zolpidem Tartrate (Ambien) 5 mg PO HS PRN PRN Reason: INSOMNIA Assessment and Plan - Diagnosis (1) S/P primary low transverse Code(s): Z98.891 - History of uterine scar from previous surgery Status: Acute (2) Labor presentation, breech Code(s): O32.1XX0 - Maternal care for breech presentation, not applicable or unspecified Status: Acute (3) labor in third trimester Code(s): O60.03 - labor without delivery, third trimester Status: Acute - Plan POD#2 routine supportive care, reviewed proper wound care & office f/u, AQA Discharge Planning: POD#2-3 (3) labor in third trimester Qualifiers: labor delivery status: with delivery in third trimester Fetus number: single or unspecified fetus Qualified Code(s): O60.14X0 - labor third trimester with delivery third trimester, not applicable or unspecified
== END 2018-04-16 16:56 | disposition home or self-care (01) ==
LOC: HOBED 11:35 → H2E 14:25 → H1EA 17:19
PROVIDERS: ADMIT Obstetrics & Gynecology; ATTEND Obstetrics & Gynecology

== ENCOUNTER 2018-06-30 14:43 | Inpatient (IN) ==
--- NOTE | 2018-06-30 17:49 | ED ---
HPI General Chief Complaint: Psychiatric Symptoms Stated Complaint: vol psych screen Time Seen by Provider: 06/30/18 17:22 Source: patient and RN notes reviewed Mode of arrival: ambulatory Limitations: no limitations History of Present Illness HPI Narrative: 22-year-old female presents to the emergency department voluntarily for psychiatric evaluation. Patient states she has been depressed for the past year and a half. She quit taking her fluoxetine 5 days ago. She states that she got into an argument with her today. She states that she took a her 's gun and locked herself in the bathroom with the intention of killing herself. However, her got inside the bathroom and brought her to the hospital. Patient denies previous history of suicidal attempt. She reports that she has a 2-month-old and 2-year-old at home. She does report history of depression after her 2-year-old was born. Patient denies any other medical problems. She takes no other medications. Moderate severity. MD complaint: suicidal ideation and feels depressed History of same: No Exacerbating factors: other (not taking medication, fight with ) Context: not taking psychiatric medications and significant life stressor Associated psychiatric symptoms: depression and suicidal ideation Associated symptoms: denies other symptoms Treatments prior to arrival: none Related Data Home Medications Medication Instructions Recorded Confirmed fluoxetine 40 mg PO DAILY 06/30/18 06/30/18 Allergies Allergy/AdvReac Type Severity Reaction Status Date / Time No Known Allergies Allergy Verified 04/14/18 12:31 Review of Systems ROS: all other systems reviewed are negative PMFSH Medical History Medical History Depression (Acute) Surgical History Surgical History History of delivery (Acute) Social History Social History Substance History: No History of Abuse Second Hand Smoke Exposure: No Smoking Status: Never smoker How Often Do You Have a Drink Containing Alcohol: Monthly or less Hx Recent Travel: No Recent Travel in [place] within the Last 8 Weeks: No Recent Out of Country Travel within the Last 8 Weeks: No Immunization History Tetanus Immunization: <5 Years Hx Influenza Vaccine This Season: Yes Exam Narrative Exam Narrative: GENERAL: Well-nourished, well-developed female patient, afebrile. SKIN: Focused skin assessment warm/dry. HEAD: Normocephalic. Atraumatic. EYES: No scleral icterus. No injection or drainage. NECK: Supple, trachea midline. No JVD or lymphadenopathy. CARDIOVASCULAR: Regular rate and rhythm without murmurs, gallops, or rubs. RESPIRATORY: Breath sounds equal bilaterally. No accessory muscle use. Lung sounds are clear to auscultation. GASTROINTESTINAL: Abdomen soft, non-tender, nondistended. MUSCULOSKELETAL: No cyanosis, or edema. PSYCHIATRIC: No delusional thought processes. No hallucinations. Patient is tearful on my exam. Course Initial Documented Vital Signs Pulse Rate 104 H 06/30/18 14:52 Respiratory Rate 20 06/30/18 14:52 Blood Pressure 128/65 06/30/18 14:52 Pulse Oximetry 98 06/30/18 14:52 Last Documented Vital Signs Temperature 98.0 F 07/01/18 17:16 Pulse Rate 96 H 07/01/18 17:16 Respiratory Rate 18 07/01/18 17:16 Blood Pressure 122/75 07/01/18 17:16 Pulse Oximetry 97 07/01/18 17:16 Medical Decision Making NATALYA Attestation NATALYA supervised visit: Yes Attestation: I, Dr. Villalobos, have reviewed the advance practice practitioner's documentation and am in agreement, met with the patient face to face, made the diagnosis, and the medical decision making was done by me. *My assessment and Findings: Patient seen and examined by me in addition to Uyen VALLE, this is a 22-year-old female with a history of depression from her first child presents emergency department with depression and attempted suicide tonight. Patient states that she had a gun in her hand, she admitted to Uyen that she had locked herself in the bathroom when her discovered her and stopped her. She has not been taking her SSRIs. For me she is very to stay in the hospital and therefore meets Mckeon act criteria and I have filled out the proper documentation. She has no medical complaints of warrant further workup. She will be medically cleared for psychiatric evaluation under the Mckeon act. MDM Narrative Medical decision making narrative: 22-year-old female presents to the emergency department voluntarily for psychiatric evaluation. Patient does admit to taking her 's gun and locking herself in the bathroom and the intent of killing herself. The patient is placed under Mckeon act as she is unsure if she wants to stay voluntarily in the hospital. CBC, CMP, TSH, alcohol level, urine drug screen, salicylate level, Tylenol level, urine test are ordered and pending. CBC shows no acute abnormality. CMP shows no acute abnormality. TSH is 0.561. Alcohol level is less than 3. UDS is negative. Salicylate level is less than 1.7. Acetaminophen level is less than 2.0. UPT is negative. Patient is medically cleared for psychiatric screening and disposition. Medical Screen Exam Complete: Yes Emergency Medical Condition: Yes Medical Records Medical records reviewed: Yes I reviewed the patient's medical records. Lab Data Result diagrams: 06/30/18 17:34 06/30/18 17:34 POC Results POC Urine Results Negative Lab Results 06/30/18 06/30/18 06/30/18 Range/Units 17:34 17:34 17:34 WBC 8.9 (4.0-11.0) th/mm3 RBC 4.83 (4.00-5.30) mil/mm3 Hgb 11.6 (11.6-15.3) gm/dL Hct 35.8 (35.0-46.0) % MCV 74.1 L (80.0-100.0) fL MCH 24.0 L (27.0-34.0) pg MCHC 32.4 (32.0-36.0) % RDW 18.3 H (11.6-17.2) % Plt Count 385 (150-450) th/mm3 MPV 7.7 (7.0-11.0) fL Neut % (Auto) 68.7 (16.0-70.0) % Lymph % (Auto) 22.6 (9.0-44.0) % Adams % (Auto) 6.8 (0.0-8.0) % Eos % (Auto) 1.2 (0.0-4.0) % Baso % (Auto) 0.7 (0.0-2.0) % Neut # (Auto) 6.1 (1.8-7.7) th/mm3 Lymph # (Auto) 2.0 (1.0-4.8) th/mm3 Adams # (Auto) 0.6 (0.0-0.9) th/mm3 Eos # (Auto) 0.1 (0.0-0.4) th/mm3 Baso # (Auto) 0.1 (0.0-0.2) th/mm3 WBC Differential . Differential Comment Auto diff final Sodium 141 (136-145) meq/L Potassium 3.5 (3.5-5.1) meq/L Chloride 107 (98-107) meq/L Carbon Dioxide 24.3 (21.0-32.0) meq/L Anion Gap 10 (5-15) meq/L BUN 10 (7-18) mg/dL Creatinine 0.65 (0.50-1.00) mg/dL Estimated GFR Greater than 89 (>89) mL/min Random Glucose 77 (74-106) mg/dL Calcium 8.8 (8.5-10.1) mg/dL Total Bilirubin 0.3 (0.2-1.0) mg/dL AST 26 (15-37) U/L ALT 52 (10-53) U/L Alkaline Phosphatase 126 H (45-117) U/L Total Protein 8.3 H (6.4-8.2) g/dL Albumin 3.9 (3.4-5.0) g/dL TSH 0.561 (0.358-3.740) uIU/mL Salicylates Less than 1.7 L (2.8-20.0) mg/dL Urine Opiates Screen (Neg) Acetaminophen Less than 2.0 L (10.0-30.0) mcg/mL Ur Barbiturates Screen (Neg) Ur Amphetamines Screen (Neg) U Benzodiazepines Scrn (Neg) Urine Cocaine Screen (Neg) U Cannabinoids Screen (Neg) Serum Alcohol Less than 3 (0-5) mg/dL 06/30/18 Range/Units 17:47 WBC (4.0-11.0) th/mm3 RBC (4.00-5.30) mil/mm3 Hgb (11.6-15.3) gm/dL Hct (35.0-46.0) % MCV (80.0-100.0) fL MCH (27.0-34.0) pg MCHC (32.0-36.0) % RDW (11.6-17.2) % Plt Count (150-450) th/mm3 MPV (7.0-11.0) fL Neut % (Auto) (16.0-70.0) % Lymph % (Auto) (9.0-44.0) % Adams % (Auto) (0.0-8.0) % Eos % (Auto) (0.0-4.0) % Baso % (Auto) (0.0-2.0) % Neut # (Auto) (1.8-7.7) th/mm3 Lymph # (Auto) (1.0-4.8) th/mm3 Adams # (Auto) (0.0-0.9) th/mm3 Eos # (Auto) (0.0-0.4) th/mm3 Baso # (Auto) (0.0-0.2) th/mm3 WBC Differential Differential Comment Sodium (136-145) meq/L Potassium (3.5-5.1) meq/L Chloride (98-107) meq/L Carbon Dioxide (21.0-32.0) meq/L Anion Gap (5-15) meq/L BUN (7-18) mg/dL Creatinine (0.50-1.00) mg/dL Estimated GFR (>89) mL/min Random Glucose (74-106) mg/dL Calcium (8.5-10.1) mg/dL Total Bilirubin (0.2-1.0) mg/dL AST (15-37) U/L ALT (10-53) U/L Alkaline Phosphatase (45-117) U/L Total Protein (6.4-8.2) g/dL Albumin (3.4-5.0) g/dL TSH (0.358-3.740) uIU/mL Salicylates (2.8-20.0) mg/dL Urine Opiates Screen Neg (Neg) Acetaminophen (10.0-30.0) mcg/mL Ur Barbiturates Screen Neg (Neg) Ur Amphetamines Screen Neg (Neg) U Benzodiazepines Scrn Neg (Neg) Urine Cocaine Screen Neg (Neg) U Cannabinoids Screen Neg (Neg) Serum Alcohol (0-5) mg/dL Discharge Plan Discharge Disposition Patient Disposition: 30 Still Patient Discharge Details Diagnosis: Post- depression Physicians Team ED Provider: Peter Villalobos ED Midlevel Provider: Uyen Troy Primary Care Provider: Ivy Reece Attending Provider: Maikel Petty Other Providers: Claudia Larson Discharge Interventions Interventions: ED Discharge Assessment Last Done: 07/01/18 00:01 Vital Signs Last Done: 06/30/18 22:54 Status ED Status: Left Department Discharge Information Discharge Date/Time: 07/01/18 00:02
[2018-06-30 18:00] LABS: Baso # (Auto) 0.1 th/mm3 (0.0-0.2); Baso % (Auto) 0.7 % (0.0-2.0); Eos # (Auto) 0.1 th/mm3 (0.0-0.4); Eos % (Auto) 1.2 % (0.0-4.0); Hematocrit 35.8 % (35.0-46.0); Hemoglobin 11.6 gm/dL (11.6-15.3); Lymph % (Auto) 22.6 % (9.0-44.0); Mean Corpuscular HGB Conc 32.4 % (32.0-36.0); Mean Corpuscular Volume 74.1 fL (80.0-100.0); Mean Platelet Volume 7.7 fL (7.0-11.0); Mono # (Auto) 0.6 th/mm3 (0.0-0.9); Mono % (Auto) 6.8 % (0.0-8.0); Neut # (Auto) 6.1 th/mm3 (1.8-7.7); Neut % (Auto) 68.7 % (16.0-70.0); Platelet Count 385 th/mm3 (150-450); Red Blood Count 4.83 mil/mm3 (4.00-5.30); Red Cell Distribution Width 18.3 % (11.6-17.2); White Blood Count 8.9 th/mm3 (4.0-11.0)
[2018-06-30 18:08] LABS: Amphetamine Screen,Urine Neg (Neg); Barbiturate Screen,Urine Neg (Neg); Cannabinoid Screen,Urine Neg (Neg); Cocaine Screen,Urine Neg (Neg)
[2018-06-30 18:29] LABS: Opiate Screen,Urine Neg (Neg)
[2018-06-30 18:38] LABS: Albumin 3.9 g/dL (3.4-5.0); Anion Gap 10 meq/L (5-15); Aspartate Aminotransferase 26 U/L (15-37); Blood Urea Nitrogen 10 mg/dL (7-18); Calcium 8.8 mg/dL (8.5-10.1); Carbon Dioxide 24.3 meq/L (21.0-32.0); Chloride 107 meq/L (98-107); Glomerular Filtration Rate Greater Than 89 mL/min (>89); Glucose,Random 77 mg/dL (74-106); Potassium 3.5 meq/L (3.5-5.1); Sodium 141 meq/L (136-145)
[2018-06-30 18:40] LABS: Alanine Aminotransferase 52 U/L (10-53)
[2018-06-30 18:49] LABS: Alkaline Phosphatase 126 U/L (45-117); Thyroid Stimulating Hormone 0.561 uIU/mL (0.358-3.740); Total Protein 8.3 g/dL (6.4-8.2)
[2018-06-30] MEDS ORDERED: Acetaminophen 325 MG Tablet PO PRN (23:31)
[2018-06-30] MEDS ORDERED: LORazepam 1 MG Tablet PO PRN (23:34)
[2018-06-30] MEDS ORDERED: Aluminum/Magnesium/Simethacone Susp 30 ML UDC PO PRN (23:34)
--- NOTE | 2018-07-01 12:01 | P.HPPSY ---
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 Express and informed consent means consent voluntarily given in writing, by a competent person, after sufficient explanation and disclosure of the subject matter involved to enable the person to make a knowing and willful decision without any element of force, fraud, deceit, duress, or other form of constraint or coercion. This person is 18 years of age or older, is not now known to be incompetent to consent to treatment with a guardian advocate, and does not have a health care surrogate or proxy currently making medical treatment decisions. I have found this person to be one of the following: [X] Competent to provide express and informed consent, as defined above, for voluntary admission to this facility and is competent to provide express and informed consent for treatment. He/she has the consistent capacity to make well reasoned, willful, and knowing decisions concerning his or her medical or mental health treatment. The person fully and consistently understands the purpose of the admission for examination/placement and is fully capable of personally exercising all rights assured under [place] Incompetent to provide express and informed consent to voluntary admission, and this is incompetent to provide express and informed consent to treatment. The person must be transferred to involuntary status and a petition for a guardian advocate filed with the Circuit Court. [] Refusing to provide express and informed consent to voluntary admission but is competent to provide express and informed consent for treatment. The person must be discharged or transferred to involuntary status. Form shall be completed within 24 hours of a person's arrival at the receiving facility and filed in the clinical record of each person: 1. Admitted on a voluntary basis 2. Permitted to provide express and informed consent to his/her own treatment 3. Allowed to transfer from involuntary to voluntary status 4. Prior to permitting a person to consent to his or her own treatment after having been previously found incompetent to consent to treatment. 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 CBC, CMP, TSH, alcohol level, urine drug screen, salicylate level, Tylenol level, urine test were reviewed and showed no abnormality. TSH is 0.561. Alcohol level is less than 3. UDS is negative. Salicylate level is less than 1.7. Acetaminophen level is less than 2.0. UPT is negative. Chart was reviewed. The patient was seen in 2600. She is calm, cooperative. Patient states she has been depressed for the past year and a half. She quit taking her fluoxetine 5 days ago because it was not working. She states that she got into an argument with her yesterday and she could not handle the frustration and anger, became very hopeless, helpless, and was not able to see clear her future, and she thought about committing suicide. She states that she took a her 's gun and locked herself in the bathroom with the intention of killing herself "at that moment I was really blind, and very happy I did not do that". Her got inside the bathroom and brought her to the hospital. The patient reports that in the last month she has been feeling quite depressed. Since she gave she has a sensation that she is of abdomen, nobody cares about her," quite empty". At this moment the patient denies suicidal and homicidal ideation, she denies visual and auditory hallucinations. She seems to be objectively depressed, fragile and vulnerable. But, she is logical, coherent and relevant. No paranoia, no loosening of associations, no ideas of reference, no disorganized behavior or speech present at this moment. She is fully oriented 3. No attention deficit or gross cognitive impairment present. PPHx: History of depression, no previous psychiatric hospitalizations, no previous suicidal attempts, she is on Prozac 40 mg. She was on Lexapro and Zoloft unsuccessfully in the past PMHx: 2 months Substance Hx: He reports occasional use of alcohol. 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 This includes certification that hospital inpatient services are reasonable and necessary and in the case of services not specified as inpatient-only under 42 CFR 419.22(n), that they are appropriately provided as inpatient services in accordance to with the 2-midnight benchmark under 43 CFR 412.3(e) I certify that inpatient psychiatric hospital services are medically necessary. Evaluation and treatment and/or diagnostic testing are expected to improve the patient's condition. The patient needs on a daily basis, active treatment furnished directly by or requiring the supervision of inpatient psychiatric facility personnel. Review of Systems All other systems reviewed negative except as stated in HPI Psychiatric: Reports change in appetite, Reports depression, Reports irritability, Reports thoughts of hurting/killing yourself COUNT INCLUDES THE [facility] - History History Provided By: Patient - Medical History Medical History: Medical History (Last Updated 06/30/18 @ 17:37 by Zo Cruz) Depression - Surgical History Surgical History: Surgical History (Last Updated 04/14/18 @ 14:32 by Rahul Mancini MD) History of delivery - Tobacco History Second Hand Smoke Exposure: No Tobacco Use In Past 30 Days: No Smoking Status: Never smoker - Alcohol History How Often Do You Have a Drink Containing Alcohol: Monthly or less - Substance Use History Substance History: No History of Abuse - Travel History History of Recent Travel: No Recent Travel in the [place] Within the Last 8 Weeks: No Recent Travel Out of the Country Within the Last 8 Weeks: No - Immunization History Tetanus Immunization: <5 Years Hx Influenza Vaccine This Season: Yes Medications and Allergies Active Medications: Active Medications Acetaminophen (Tylenol) 650 mg PO Q4H PRN PRN Reason: PAIN 1-5 / TEMP > 101 Al Hydrox/Mg Hydrox/Simethicone (Mag-Al Plus Susp Liq) 30 ml PO Q6H PRN PRN Reason: DYSPEPSIA Al Hydroxide/Mg Hydroxide (Milk Of Magnesia Liq) 30 ml PO Q24H PRN PRN Reason: CONSTIPATION Diphenhydramine HCl (Benadryl) 50 mg PO HS PRN PRN Reason: INSOMNIA Diphenhydramine HCl (Benadryl Inj) 50 mg IM HS PRN PRN Reason: INSOMNIA Lorazepam (Ativan) 1 mg PO Q6H PRN PRN Reason: MODERATE TO SEVERE ANXIETY Lorazepam (Ativan Inj) 1 mg IM Q6H PRN PRN Reason: MODERATE TO SEVERE ANXIETY Non-Formulary Medication (Fluoxetine [Fluoxetine]) 40 mg PO DAILY PREET Allergies Allergy/AdvReac Type Severity Reaction Status Date / Time No Known Allergies Allergy Verified 04/14/18 12:31 Home Medications Medication Instructions Recorded Confirmed Type fluoxetine 40 mg PO DAILY 06/30/18 06/30/18 History Results - Labs CBC & Chem 7: 06/30/18 17:34 06/30/18 17:34 Labs: Laboratory Results - last 24 hr 06/30/18 06/30/18 06/30/18 17:34 17:34 17:34 WBC 8.9 RBC 4.83 Hgb 11.6 Hct 35.8 MCV 74.1 L MCH 24.0 L MCHC 32.4 RDW 18.3 H Plt Count 385 MPV 7.7 Neut % (Auto) 68.7 Lymph % (Auto) 22.6 Bennett % (Auto) 6.8 Eos % (Auto) 1.2 Baso % (Auto) 0.7 Neut # (Auto) 6.1 Lymph # (Auto) 2.0 Bennett # (Auto) 0.6 Eos # (Auto) 0.1 Baso # (Auto) 0.1 WBC Differential . Differential Comment Auto diff final Sodium 141 Potassium 3.5 Chloride 107 Carbon Dioxide 24.3 Anion Gap 10 BUN 10 Creatinine 0.65 Estimated GFR Greater than 89 Random Glucose 77 Calcium 8.8 Total Bilirubin 0.3 AST 26 ALT 52 Alkaline Phosphatase 126 H Total Protein 8.3 H Albumin 3.9 TSH 0.561 Salicylates Less than 1.7 L Urine Opiates Screen Acetaminophen Less than 2.0 L Ur Barbiturates Screen Ur Amphetamines Screen U Benzodiazepines Scrn Urine Cocaine Screen U Cannabinoids Screen Serum Alcohol Less than 3 06/30/18 17:47 WBC RBC Hgb Hct MCV MCH MCHC RDW Plt Count MPV Neut % (Auto) Lymph % (Auto) Bennett % (Auto) Eos % (Auto) Baso % (Auto) Neut # (Auto) Lymph # (Auto) Bennett # (Auto) Eos # (Auto) Baso # (Auto) WBC Differential Differential Comment Sodium Potassium Chloride Carbon Dioxide Anion Gap BUN Creatinine Estimated GFR Random Glucose Calcium Total Bilirubin AST ALT Alkaline Phosphatase Total Protein Albumin TSH Salicylates Urine Opiates Screen Neg Acetaminophen Ur Barbiturates Screen Neg Ur Amphetamines Screen Neg U Benzodiazepines Scrn Neg Urine Cocaine Screen Neg U Cannabinoids Screen Neg Serum Alcohol Exam Vital signs: Vital Signs 06/30/18 14:52 06/30/18 15:02 06/30/18 19:36 Temperature 98.3 F Pulse Rate 104 H 74 104 H Respiratory Rate 20 16 18 Blood Pressure 128/65 133/83 122/74 Pulse Oximetry 98 100 100 06/30/18 22:54 07/01/18 00:05 07/01/18 05:33 Temperature 98.4 F 98.2 F 98.2 F Pulse Rate 77 71 72 Respiratory Rate 16 20 16 Blood Pressure 113/70 131/73 114/57 L Pulse Oximetry 98 97 98 07/01/18 05:35 Temperature 98.2 F Pulse Rate 72 Respiratory Rate 16 Blood Pressure 114/57 L Pulse Oximetry 98 Intake & Output 06/30/18 07/01/18 07/01/18 18:59 06:59 18:59 Weight 73.028 kg 71.7 kg Other: Weight On Admission 71.7 kg Narrative: No gait disturbance, no psychomotor agitation or retardation, no EPS, no stiffness, no withdrawal - Constitutional no acute distress - Routine HEENT Exam Head: Present: normocephalic, atraumatic Eye: Present: EOMI Mental Status Examination Appearance: Appropriate Consciousness: Alert Orientation: x4 Motor Activity: Normal gait Speech: Unremarkable Language: Adequate Fund of Knowledge: Adequate Attention and Concentration: Adequate Memory: Unremarkable Mood: Sad Affect: Sad Thought Process & Associations: Intact Thought Content: Appropriate Hallucination Type: None Delusion Type: None Suicidal Ideation: No Suicidal Plan: No Suicidal Intention: No Homicidal Ideation: No Homicidal Plan: No Homicidal Intention: No Insight: Adequate Judgment: Adequate Assessment and Plan - Assessment (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 She reports that in the last 2 months, since she gave , she has been feeling hopeless, helpless, with increased sense of abandonment, emptiness , poor sleep, and frequent suicidal thoughts, but no intention. Yesterday after an argument with her she went to the bathroom and lack herself with his gun with intentions to commit suicide. He is a patient with history of depression, she is on Prozac 40 mg, apparently she has been stable until she gave . Patient seems to be suffering depression. She will be admitted in psychiatry for stabilization and safety. I will restart the Prozac 40 mg daily. Extensive support, motivation and psychoeducation provided. Collateral information from her is a still needed. I will consult psychiatry for second opinion. Justification for Continued Inpatient Stay: Patient needs psychiatric hospitalization for stabilization.
[2018-07-01] MEDS: FLUoxetine 20 MG Capsule PO SCH (15:00)
[2018-07-02] MEDS: FLUoxetine 20 MG Capsule PO SCH (09:16)
--- NOTE | 2018-07-02 12:41 | P.CONPSY ---
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 Per records, pt told admitting physician that she was depressed and locked herself in bathroom with her gun and was planning to shoot herself. Pt admits that she has been very depressed and became overwhelmed and anxious after an argument with her . She states that she had stopped taking fluoxetine approximately on week ago and feels that has contributed to increase in depression. She is guarded and evasive when asked about SI and incident with gun that led to her admission to [facility]. She minimizes severity of presentation stating that she merely was in the room with the gun, and is focused on discharge. Of note, pt told residential treatment staff that she did take her 's gun and locked herself in the bathroom to "scare" him. At this point , pt is an unreliable historian and warrants a period of observation for safety. She reports that she has no outpatient psychiatric provider or therapist and PCP prescribes medication. She reports very limited coping skills and difficulty managing impulses. Review of Systems Psychiatric: Reports anxiety, Reports depression PMFSH - History History Provided By: Patient - Medical History Medical History: Medical History (Last Reviewed 07/02/18 @ 12:36 by Claudia Larson MD) Depression - Surgical History Surgical History: Surgical History (Last Reviewed 07/02/18 @ 12:36 by Claudia Larson MD) History of delivery - Tobacco History Second Hand Smoke Exposure: No Tobacco Use In Past 30 Days: No Smoking Status: Never smoker - Alcohol History How Often Do You Have a Drink Containing Alcohol: Monthly or less - Substance Use History Substance History: No History of Abuse - Travel History History of Recent Travel: No Recent Travel in the [place] Within the Last 8 Weeks: No Recent Travel Out of the Country Within the Last 8 Weeks: No - Immunization History Tetanus Immunization: <5 Years Hx Influenza Vaccine This Season: Yes Medications and Allergies Active Medications: Active Medications Acetaminophen (Tylenol) 650 mg PO Q4H PRN PRN Reason: PAIN 1-5 / TEMP > 101 Al Hydrox/Mg Hydrox/Simethicone (Mag-Al Plus Susp Liq) 30 ml PO Q6H PRN PRN Reason: DYSPEPSIA Al Hydroxide/Mg Hydroxide (Milk Of Magnesia Liq) 30 ml PO Q24H PRN PRN Reason: CONSTIPATION Diphenhydramine HCl (Benadryl) 50 mg PO HS PRN PRN Reason: INSOMNIA Diphenhydramine HCl (Benadryl Inj) 50 mg IM HS PRN PRN Reason: INSOMNIA Fluoxetine HCl (Prozac) 40 mg PO DAILY PREET Last Admin: 07/02/18 09:16 Dose: 40 mg Lorazepam (Ativan) 1 mg PO Q6H PRN PRN Reason: MODERATE TO SEVERE ANXIETY Lorazepam (Ativan Inj) 1 mg IM Q6H PRN PRN Reason: MODERATE TO SEVERE ANXIETY Allergies Allergy/AdvReac Type Severity Reaction Status Date / Time No Known Allergies Allergy Verified 04/14/18 12:31 Home Medications Medication Instructions Recorded Confirmed Type fluoxetine 40 mg PO DAILY 06/30/18 06/30/18 History Exam Vital signs: Vital Signs 07/01/18 17:16 07/02/18 05:30 Temperature 98.0 F 97.9 F Pulse Rate 96 H 81 Respiratory Rate 18 16 Blood Pressure 122/75 118/55 L Pulse Oximetry 97 97 Mental Status Examination Appearance: Appropriate Consciousness: Alert Orientation: x4 Motor Activity: Normal gait Speech: Unremarkable Language: Adequate Fund of Knowledge: Adequate Attention and Concentration: Adequate Memory: Unremarkable Mood: Sad Affect: Sad Thought Process & Associations: Intact Thought Content: Appropriate Hallucination Type: None Delusion Type: None Suicidal Ideation: No (denies but unreliable to contract for safety) Suicidal Plan: No Suicidal Intention: No Homicidal Ideation: No Homicidal Plan: No Homicidal Intention: No Insight: Adequate Judgment: Adequate Assessment and Plan - Assessment (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 2nd opinion paperwork completed Justification for Continued Inpatient Stay: impairments in safety
[2018-07-03 05:20] VITALS: BP 106/67; PULSE 60; RESP 17; TEMP 98.1; O2SAT 95
[2018-07-03] MEDS: FLUoxetine 20 MG Capsule PO SCH (08:21)
--- NOTE | 2018-07-03 13:40 | P.DSPSY ---
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 CBC, CMP, TSH, alcohol level, urine drug screen, salicylate level, Tylenol level, urine test were reviewed and showed no abnormality. TSH is 0.561. Alcohol level is less than 3. UDS is negative. Salicylate level is less than 1.7. Acetaminophen level is less than 2.0. UPT is negative. Chart was reviewed. The patient was seen in 2600. She is calm, cooperative. Patient states she has been depressed for the past year and a half. She quit taking her fluoxetine 5 days ago because it was not working. She states that she got into an argument with her yesterday and she could not handle the frustration and anger, became very hopeless, helpless, and was not able to see clear her future, and she thought about committing suicide. She states that she took a her 's gun and locked herself in the bathroom with the intention of killing herself "at that moment I was really blind, and very happy I did not do that". Her got inside the bathroom and brought her to the hospital. The patient reports that in the last month she has been feeling quite depressed. Since she gave she has a sensation that she is of abdomen, nobody cares about her," quite empty". At this moment the patient denies suicidal and homicidal ideation, she denies visual and auditory hallucinations. She seems to be objectively depressed, fragile and vulnerable. But, she is logical, coherent and relevant. No paranoia, no loosening of associations, no ideas of reference, no disorganized behavior or speech present at this moment. She is fully oriented 3. No attention deficit or gross cognitive impairment present. PPHx: History of depression, no previous psychiatric hospitalizations, no previous suicidal attempts, she is on Prozac 40 mg. She was on Lexapro and Zoloft unsuccessfully in the past PMHx: 2 months Substance Hx: He reports occasional use of alcohol. 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 An initial psychiatric and psychosocial assessment were performed. The patient was admitted in 2600 unit. Appropriate safety measures were taken. Patient was we have started in Prozac 20 mg, that was raised to 40 mg. She was also placed in individual counseling and group therapy. Since the beginning the patient minimize her gesture, he stated that she just wanted to scare her . She reports that she was very depressed after her delivery, but she was much better with the Prozac. She reports that she could be impulsive and at times have very poor coping skill to deal with the stress. During the hospitalization the patient was initially calm, cooperative, engaged in therapies, engaging activities, compliant with medications, no significant side effects. She was not some white childish, needy, very focused on discharge. At the moment of discharge the patient denies a dermatology of depression, denies anxiety, denies rolando and psychosis. She denies suicidal and homicidal ideation. Denies visual and auditory hallucinations. The patient is future oriented, compromised with continue medications and outpatient care. Her was contacted and he agrees with the discharge. 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 Status: Acute Discharge Disposition: Home - Discharge Time > 30 minutes Mental Status Examination Appearance: Appropriate Consciousness: Alert Orientation: x4 Motor Activity: Normal gait Speech: Unremarkable Language: Adequate Fund of Knowledge: Adequate Attention and Concentration: Adequate Memory: Unremarkable Mood: Sad Affect: Sad Thought Process & Associations: Intact Thought Content: Appropriate Hallucination Type: None Delusion Type: None Suicidal Ideation: No (denies but unreliable to contract for safety) Suicidal Plan: No Suicidal Intention: No Homicidal Ideation: No Homicidal Plan: No Homicidal Intention: No Insight: Adequate Judgment: Adequate Discharge/Advance Care Plan - Results Vital Signs: Last Vital Signs Temp 98.1 F 07/03/18 05:18 Pulse 60 07/03/18 05:18 Resp 17 07/03/18 05:18 BP 106/67 07/03/18 05:18 Pulse Ox 95 07/03/18 05:18 Lab Results: Laboratory Results TSH 0.561 uIU/mL (0.358-3.740) 06/30/18 17:34 Summary of Procedures: None Pending Results: None - Medications Number of antipsychotic medications at discharge: 0 - Discharge Care Plan Goals to Promote Your Health: * To prevent worsening of your condition and complications * To maintain your health at the optimal level Directions to Meet Your Goals: Take your medications as prescribed Follow your dietary instruction Follow activity as directed Keep your appointments as scheduled Take your immunizations and boosters as scheduled If your symptoms worsen call your PCP, if no PCP go to Urgent Care Center or Emergency Room For 02/05 questions related to your inpatient stay or results of tests pending at discharge, please contact Dr. Oliver Ferguson MD at [phone] Smoking is Dangerous to Your Health. Avoid second hand smoking
== END 2018-07-03 14:15 | disposition home or self-care (01) ==
LOC: NEPC 14:43 → NEDA 23:47 → H260 07-01 00:10
PROVIDERS: ADMIT Psychiatry & Neurology Psychiatry; ATTEND Psychiatry & Neurology Psychiatry